=== PATIENT | female | born 1970 | race Caucasian/White ===

== ENCOUNTER 2017-01-28 13:57 | Emergency (ER) | payer MEDICAID ==
[2017-01-28] MEDS ORDERED: MECLIZINE 12.5 MG TAB PO STA (14:10)
[2017-01-28] MEDS ORDERED: LORazepam 2 MG/ML SYRINGE IV STA (14:10)
[2017-01-28] MEDS ORDERED: ONDANSETRON 4 MG/2 ML VIAL IVP STA (14:10)
[2017-01-28] MEDS ORDERED: RX INFO: IV CONTRAST WAS GIVEN 1 EACH MISC MISCELLANE PRN (14:10)
[2017-01-28] MEDS ORDERED: SODIUM CHLORIDE 0.9% 1,000 ML IV STA ×2 (14:10)
--- NOTE | 2017-01-28 14:13 | ED ---
General Adult HPI - General Chief complaint: Dizziness Stated complaint: Nausea/ Rapid Heartbeat Time Seen by Provider: 01/28/17 14:03 Source: patient, family, RN notes reviewed Mode of arrival: wheelchair Limitations: no limitations - History of Present Illness Initial comments: 46-year-old female presents with sudden onset dizziness and nausea. Patient was at work and around 12 PM developed the symptoms. Patient was well prior to this. No complaints. Patient does report a spinning sensation. Worse with her eyes open. She feels somewhat better laying down with her eyes closed. Symptoms are worse with sitting or standing. No ear pain or hearing changes. Denies recent cough or cold symptoms. No fever or chills. No chest pain shortness of breath. No complaints of weakness. Patient does have past medical history of brain aneurysm. She had previously followed with neurosurgery and at the time of her most recent evaluation which was approximately 5 years ago there was no need for intervention. Patient states she should have this monitored on an annual basis but has not had CT angiography or angiography in the past 5 years. she currently denies headache. Denies focal weakness. - Related Data Home Medications Medication Instructions Recorded Confirmed Cetirizine HCl [Zyrtec] 10 mg PO DAILY PRN 01/28/17 01/28/17 diphenhydrAMINE [Benadryl] 50 mg PO HS 01/28/17 01/28/17 Allergies Allergy/AdvReac Type Severity Reaction Status Date / Time Penicillins Allergy Unknown Verified 01/28/17 14:39 Review of Systems ROS Statement: Those systems with pertinent positive or pertinent negative responses have been documented in the HPI. ROS Other: All systems not noted in ROS Statement are negative. Past Medical History Additional Past Medical History / Comment(s): brain aneurysm History of Any Multi-Drug Resistant Organisms: None Reported Past Surgical History: Cholecystectomy Additional Past Surgical History / Comment(s): breast reduction Past Psychological History: No Psychological Hx Reported Smoking Status: Never smoker Past Alcohol Use History: None Reported Past Drug Use History: None Reported General Exam Limitations: no limitations General appearance: alert, in distress Head exam: Present: atraumatic, normocephalic Eye exam: Present: normal appearance, PERRL, EOMI ENT exam: Present: normal exam, mucous membranes moist Neck exam: Present: normal inspection. Absent: tenderness, meningismus Respiratory exam: Present: normal lung sounds bilaterally. Absent: respiratory distress, wheezes, rales Cardiovascular Exam: Present: regular rate, normal rhythm GI/Abdominal exam: Present: soft. Absent: distended, tenderness Extremities exam: Present: normal inspection, full ROM, normal capillary refill. Absent: tenderness, pedal edema Neurological exam: Present: alert, oriented X3, CN II-XII intact, other (No nystagmus). Absent: motor sensory deficit Psychiatric exam: Present: normal affect, normal mood Skin exam: Present: warm, dry, intact. Absent: cyanosis, diaphoretic Course Vital Signs 01/28/17 01/28/17 14:00 14:48 Temperature 97.0 F L Pulse Rate 87 81 Respiratory 20 18 Rate Blood Pressure 120/59 103/51 O2 Sat by Pulse 100 100 Oximetry EKG Findings - EKG Comments: EKG Findings:: EKG shows normal sinus rhythm, ventricular rate 75, WI interval 144, QRS duration 78, QTC 453, no ST segment elevation or depression, no signs of ischemia Medical Decision Making - Medical Decision Making 46-year-old female with sudden onset dizziness and nausea. Signs and symptoms are consistent with vertigo. However, patient has known history of brain aneurysm. His been over 5 years since she has had this evaluated. Head CT is obtained, negative for intracranial hemorrhage. CT angiography that neck is obtained, there is no aneurysm, there is one large enhancing likely arterial vessel in the right frontal region. This is not an aneurysm. This was discussed with radiology and Dr. Yap, does not believe this is an AVM. Laboratory studies including CBC, CMP and urinalysis are obtained, these are unremarkable. Patient is given meclizine, Zofran, and Ativan. On reevaluation she is symptom free while at rest, lying down. Nausea resolved. Patient will be discharged with close outpatient follow-up. Diagnosis: Vertigo - Lab Data Result diagrams: 01/28/17 14:44 01/28/17 14:44 Lab Results 01/28/17 01/28/17 01/28/17 Range/Units 13:26 14:44 14:44 WBC 9.5 (3.8-10.6) k/uL RBC 4.88 (3.80-5.40) m/uL Hgb 14.8 (11.4-16.0) gm/dL Hct 44.2 (34.0-46.0) % MCV 90.6 (80.0-100.0) fL MCH 30.3 (25.0-35.0) pg MCHC 33.5 (31.0-37.0) g/dL RDW 13.6 (11.5-15.5) % Plt Count 260 (150-450) k/uL Neutrophils % 86 % Lymphocytes % 10 % Monocytes % 2 % Eosinophils % 0 % Basophils % 0 % Neutrophils # 8.2 H (1.3-7.7) k/uL Lymphocytes # 1.0 (1.0-4.8) k/uL Monocytes # 0.2 (0-1.0) k/uL Eosinophils # 0.0 (0-0.7) k/uL Basophils # 0.0 (0-0.2) k/uL Sodium 138 (137-145) mmol/L Potassium 4.7 (3.5-5.1) mmol/L Chloride 102 (98-107) mmol/L Carbon Dioxide 24 (22-30) mmol/L Anion Gap 12 mmol/L BUN 7 (7-17) mg/dL Creatinine 0.73 (0.52-1.04) mg/dL Est GFR (MDRD) Af Amer >60 (>60 ml/min/1.73 sqM) Est GFR (MDRD) Non-Af >60 (>60 ml/min/1.73 sqM) Glucose 102 H (74-99) mg/dL Calcium 9.7 (8.4-10.2) mg/dL Total Bilirubin 0.3 (0.2-1.3) mg/dL AST 21 (14-36) U/L ALT 30 (9-52) U/L Alkaline Phosphatase 72 (38-126) U/L Troponin I (0.000-0.034) ng/mL Total Protein 7.7 (6.3-8.2) g/dL Albumin 4.5 (3.5-5.0) g/dL Urine Color Light Yellow Urine Appearance Clear (Clear) Urine pH 6.5 (5.0-8.0) Ur Specific [place] 1.005 (1.001-1.035) Urine Protein Negative (Negative) Urine Glucose (UA) Negative (Negative) Urine Ketones Negative (Negative) Urine Blood Negative (Negative) Urine Nitrite Negative (Negative) Urine Bilirubin Negative (Negative) Urine Urobilinogen <2.0 (<2.0) mg/dL Ur Leukocyte Esterase Negative (Negative) 01/28/17 Range/Units 14:44 WBC (3.8-10.6) k/uL RBC (3.80-5.40) m/uL Hgb (11.4-16.0) gm/dL Hct (34.0-46.0) % MCV (80.0-100.0) fL MCH (25.0-35.0) pg MCHC (31.0-37.0) g/dL RDW (11.5-15.5) % Plt Count (150-450) k/uL Neutrophils % % Lymphocytes % % Monocytes % % Eosinophils % % Basophils % % Neutrophils # (1.3-7.7) k/uL Lymphocytes # (1.0-4.8) k/uL Monocytes # (0-1.0) k/uL Eosinophils # (0-0.7) k/uL Basophils # (0-0.2) k/uL Sodium (137-145) mmol/L Potassium (3.5-5.1) mmol/L Chloride (98-107) mmol/L Carbon Dioxide (22-30) mmol/L Anion Gap mmol/L BUN (7-17) mg/dL Creatinine (0.52-1.04) mg/dL Est GFR (MDRD) Af Amer (>60 ml/min/1.73 sqM) Est GFR (MDRD) Non-Af (>60 ml/min/1.73 sqM) Glucose (74-99) mg/dL Calcium (8.4-10.2) mg/dL Total Bilirubin (0.2-1.3) mg/dL AST (14-36) U/L ALT (9-52) U/L Alkaline Phosphatase (38-126) U/L Troponin I <0.012 (0.000-0.034) ng/mL Total Protein (6.3-8.2) g/dL Albumin (3.5-5.0) g/dL Urine Color Urine Appearance (Clear) Urine pH (5.0-8.0) Ur Specific [place] (1.001-1.035) Urine Protein (Negative) Urine Glucose (UA) (Negative) Urine Ketones (Negative) Urine Blood (Negative) Urine Nitrite (Negative) Urine Bilirubin (Negative) Urine Urobilinogen (<2.0) mg/dL Ur Leukocyte Esterase (Negative) Disposition Clinical Impression: Vertigo Disposition: HOME SELF-CARE Condition: Good Instructions: Vertigo (ED) Referrals: Katharine Andrade DO [Primary Care Provider] - 1-2 days Time of Disposition: 16:06
[2017-01-28 14:49] VITALS: RESP 18
[2017-01-28 14:57] LABS: Basophils % (A) 0 %; CH 31.5; CHCM 34.9; Eosinophils % (A) 0 %; HCT 44.2 % (34.0-46.0); HDW 2.53; HGB 14.8 gm/dL (11.4-16.0); Luc # (Auto) 0.07; Luc % (Auto) 1; Lymphocytes % (A) 10 %; MCH 30.3 pg (25.0-35.0); MCHC 33.5 g/dL (31.0-37.0); MCV 90.6 fL (80.0-100.0); Mean Platelet Volume 7.2; Monocytes # (A) 0.2 k/uL (0-1.0); Monocytes % (A) 2 %; Neutrophils # (A) 8.2 k/uL (1.3-7.7); Neutrophils % (A) 86 %; RBC 4.88 m/uL (3.80-5.40); RDW 13.6 % (11.5-15.5); WBC 9.5 k/uL (3.8-10.6); WBC (Perox) 9.58
[2017-01-28 15:09] LABS: ALT 30 U/L (9-52); AST 21 U/L (14-36); Alkaline Phosphatase 72 U/L (38-126); Anion Gap 12 mmol/L; Blood Urea Nitrogen 7 mg/dL (7-17); Calcium 9.7 mg/dL (8.4-10.2); Carbon Dioxide 24 mmol/L (22-30); Chloride 102 mmol/L (98-107); Glucose 102 mg/dL (74-99); Non-African American GFR(MDRD) >60 (>60 ml/min/1.73 sqM); Potassium 4.7 mmol/L (3.5-5.1); Sodium 138 mmol/L (137-145); Total Bilirubin 0.3 mg/dL (0.2-1.3); Total Protein 7.7 g/dL (6.3-8.2)
[2017-01-28 15:35] LABS: Appearance,Urine Clear (Clear); Bilirubin,Urine Negative (Negative); Glucose,Urine (UA) Negative (Negative); Ketones,Urine Negative (Negative); Leukocyte Esterase,Urine Negative (Negative); Nitrite,Urine Negative (Negative); PH, Urine 6.5 (5.0-8.0); Protein,Urine Negative (Negative); Specific Gravity,Urine 1.005 (1.001-1.035); UA Billing (MACRO vs. MICRO) CHEM; Urobilinogen,Urine <2.0 mg/dL (<2.0)
--- NOTE | 2017-01-28 15:41 | CT ---
EXAMINATION TYPE: CT angio head neck DATE OF EXAM: 01/28/2017 HISTORY: Dizziness and nausea. hx of brain aneurysm. COMPARISON: NONE CT DLP: 248.1 mGycm. Automated Exposure Control for Dose Reduction was Utilized. TECHNIQUE: CTA scan of the neck is performed with IV Contrast, patient injected with 65 mL of Omnipa que 300, axial images are obtained, coronal and sagittal reformatted images are reviewed. Three-D rec onstructed images are created on an independent workstation and reviewed. FINDINGS: Large right arterial enhancing vessel extends from the anterior horn of the right lateral ventricle t hrough the right frontal lobe to the dural surface. No nidus is seen. No tangle of vessels to suggest arteriovenous malformation although arterial venous malformation is not excluded. Developmental veno us anomaly is also possible. This is most prominent on series 6 image 29. No evidence of hemodynamically significant stenosis. Origins of the great vessels are unremarkable. N o evidence of dissection or aneurysm. Left posterior communicating artery is either absent or diminut gurjit. Remainder the visualized portions of the [place] are intact and unremarkable. Vertebral arteries are codominant. IMPRESSION: 1. No evidence of hemodynamically significant stenosis or aneurysm despite this patient's known histo ry of aneurysm. Comparison with prior imaging would be of benefit. 2. Large arterial enhancing right frontal vessel without tangle of vessels to suggest underlying violet riovenous malformation. Despite this, arterial venous malformation is possible with other differentia l diagnosis of developmental venous anomaly.
--- NOTE | 2017-01-28 15:44 | CT ---
EXAMINATION TYPE: CT brain wo con DATE OF EXAM: 01/28/2017 COMPARISON: CT angiogram head and neck dated 01/20/2017. HISTORY: Dizziness and nausea. hx of brain aneurysm. CT DLP: 945.5 mGycm. Automated Exposure Control for Dose Reduction was Utilized. TECHNIQUE: CT scan of the head is performed without contrast. FINDINGS: There is no acute intracranial hemorrhage, mass effect, or midline shift identified. The ventricles and sulci are within normal limits in size. No extra-axial fluid collection. The globes are intact and the visualized sinuses are clear. Mastoid air cells are well aerated. Serpiginous area of hypoattenuation relates to the arterial enhancing vessel seen on the prior CT angiogram head and neck of the same date. IMPRESSION: 1. No acute intracranial hemorrhage, mass effect, or midline shift is seen. 2. Serpiginous area of hypoattenuation relates to the arterial enhancing vessel seen on the CT angiog mana head dated 01/28/2017.
[2017-01-28 16:13] VITALS: BP 101/74; PULSE 74; TEMP 98.4
== END 2017-01-28 16:33 | disposition home or self-care (01) ==
LOC: EC 13:57
DX: R42 Dizziness and giddiness (principal); R11.0 Nausea; Z86.69 Personal history of other diseases of the nervous system and sense organs; Z79.899 Other long term (current) drug therapy; Z88.0 Allergy status to penicillin
CPT/HCPCS: 36415; 93005; 80053; 84484; 85025; 81003; 70496; 70450; 70498; 99284; 96374; 96375; 96361 ×2; J2060; Q9967; J2405

== ENCOUNTER 2019-05-30 10:19 | Inpatient (IN) | payer MEDICAID ==
--- NOTE | 2019-05-30 11:09 | ED ---
Psych HPI - General Chief Complaint: Psychiatric Symptoms Stated Complaint: EPS eval Time Seen by Provider: 05/30/19 10:48 Source: patient, RN notes reviewed, old records reviewed Mode of arrival: ambulatory - History of Present Illness Initial Comments: This Patient is a 49-year-old female, who presents the emergency department today for concern for suicidal ideations. She reports that she has a history of seasonal depression disorder but does not see a psychiatrist or talks to any counseling services at this time. Patient states that she's been having increased suicidal thoughts. She reports that she has had some suicidal thoughts and depression, and did think about attempting suicide over the weekend. 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 She reports that they were in a hotel when she thought about cutting herself. Patient reports that she could not bear the thought of her seeing her about ways that she ended up not going through with it. She states that she did give herself an appointment with her primary care doctor for this upcoming week but just didn't know if she could make it until that long to see them. Patient states that she has a "good life" with a stable job, wonderful and family. Patient states that she does have a family history of manic depressive disorder. - Related Data Home Medications Medication Instructions Recorded Confirmed Cetirizine HCl [Zyrtec] 10 mg PO DAILY PRN 01/28/17 05/30/19 diphenhydrAMINE [Benadryl] 50 mg PO HS 01/28/17 05/30/19 Allergies Allergy/AdvReac Type Severity Reaction Status Date / Time Penicillins Allergy Unknown Verified 05/30/19 11:29 Review of Systems ROS Statement: Those systems with pertinent positive or pertinent negative responses have been documented in the HPI. ROS Other: All systems not noted in ROS Statement are negative. Past Medical History Additional Past Medical History / Comment(s): brain aneurysm History of Any Multi-Drug Resistant Organisms: None Reported Past Surgical History: Cholecystectomy Additional Past Surgical History / Comment(s): breast reduction Past Psychological History: No Psychological Hx Reported Smoking Status: Never smoker Past Alcohol Use History: None Reported Past Drug Use History: None Reported General Exam - General Exam Comments Initial Comments: 49-year-old female. Tearful. Limitations: no limitations General appearance: alert, in no apparent distress Head exam: Present: atraumatic, normocephalic, normal inspection Eye exam: Present: normal appearance, PERRL, EOMI. Absent: scleral icterus, conjunctival injection, periorbital swelling ENT exam: Present: normal exam, mucous membranes moist Neck exam: Present: normal inspection. Absent: tenderness, meningismus, lymphadenopathy Respiratory exam: Present: normal lung sounds bilaterally. Absent: respiratory distress, wheezes, rales, rhonchi, stridor Cardiovascular Exam: Present: regular rate, normal rhythm, normal heart sounds. Absent: systolic murmur, diastolic murmur, rubs, gallop, clicks GI/Abdominal exam: Present: soft, normal bowel sounds. Absent: distended, tenderness, guarding, rebound, rigid Extremities exam: Present: normal inspection, full ROM, normal capillary refill. Absent: tenderness, pedal edema, joint swelling, calf tenderness Back exam: Present: normal inspection Neurological exam: Present: alert, oriented X3, CN II-XII intact Psychiatric exam: Present: normal affect, normal mood Skin exam: Present: warm, dry, intact, normal color. Absent: rash Course Vital Signs 05/30/19 05/30/19 05/30/19 10:42 10:45 11:45 Temperature 98.0 F Pulse Rate 95 Respiratory 18 20 20 Rate Blood Pressure 154/77 O2 Sat by Pulse 98 Oximetry Medical Decision Making - Medical Decision Making This is a 49-year-old female who presents emergency Department today for concern for suicidal ideations. Patient has no previous inpatient psych history. Does have a family history of manic depression. She states that she had almost attempted to cut herself with a scalpel that she took from work. Patient was evaluated by EPS and does agree to sign in voluntarily. Patient will be admitted to psychiatric floor. Does request some Tylenol for headache at this time. - Lab Data Lab Results 05/30/19 Range/Units 11:22 Urine Opiates Screen Not Detected (NotDetected) Ur Oxycodone Screen Not Detected (NotDetected) Urine Methadone Screen Not Detected (NotDetected) Ur Propoxyphene Screen Not Detected (NotDetected) Ur Barbiturates Screen Not Detected (NotDetected) U Tricyclic Antidepress Not Detected (NotDetected) Ur Phencyclidine Scrn Not Detected (NotDetected) Ur Amphetamines Screen Not Detected (NotDetected) U Methamphetamines Scrn Not Detected (NotDetected) U Benzodiazepines Scrn Not Detected (NotDetected) Urine Cocaine Screen Not Detected (NotDetected) U Marijuana (THC) Screen Not Detected (NotDetected) Disposition Clinical Impression: Suicidal ideation, Depression Disposition: TRANSFER TO PSYCH HOSP/UNIT Condition: Stable Additional Instructions: Please use medication as discussed. Please follow up with family doctor if symptoms have not improved over the next two days. Please return to the emergency room if your symptoms increase or worsen or for any other concerns. Is patient prescribed a controlled substance at d/c from ED?: No Referrals: Katharine Andrade DO [Primary Care Provider] - 1-2 days Time of Disposition: 13:20
[2019-05-30 11:57] LABS: Amphetamine Screen,Urine Not Detected (NotDetected); Barbiturate Screen,Urine Not Detected (NotDetected); Benzodiazepines Screen,Urine Not Detected (NotDetected); Cocaine Screen,Urine Not Detected (NotDetected); Methadone Screen, Urine Not Detected (NotDetected); Opiate Screen,Urine Not Detected (NotDetected); Oxycodone Screen, Urine Not Detected (NotDetected); Phencyclidine Screen,Urine Not Detected (NotDetected); Tricyclic Antidepressant,Urine Not Detected (NotDetected); Urn Cannabinoid Scrn Not Detected (NotDetected)
[2019-05-30] MEDS ORDERED: ACETAMINOPHEN TAB 500 MG TAB PO STA (13:19)
[2019-05-30] MEDS ORDERED: MAGNESIUM HYDROXIDE 2,400 MG/10 ML CUP PO PRN (17:24)
[2019-05-30] MEDS ORDERED: MAG HYDROX/AL HYDROX/SIMETH 30 ML CUP PO PRN (17:24)
[2019-05-30] MEDS ORDERED: LORazepam 0.5 MG TAB PO PRN (17:24)
[2019-05-30] MEDS ORDERED: LORazepam 2 MG/ML INJ IM PRN (17:27)
[2019-05-30] MEDS: ACETAMINOPHEN TAB 325 MG TAB PO PRN (21:17)
[2019-05-31] MEDS: IBUPROFEN 800 MG TAB PO PRN ×2 (05:00→20:20)
[2019-05-31 11:34] LABS: Basophils % (A) 1 %; Eosinophils # (A) 0.1 k/uL (0-0.7); Eosinophils % (A) 1 %; HCT 43.8 % (34.0-46.0); Lymphocytes # (A) 1.7 k/uL (1.0-4.8); Lymphocytes % (A) 27 %; MCHC 32.1 g/dL (31.0-37.0); MCV 90.6 fL (80.0-100.0); Mean Platelet Volume 7.4; Monocytes # (A) 0.3 k/uL (0-1.0); Monocytes % (A) 5 %; Neutrophils # (A) 3.9 k/uL (1.3-7.7); Neutrophils % (A) 64 %; Platelet Count 291 k/uL (150-450); RBC 4.84 m/uL (3.80-5.40); RDW 12.2 % (11.5-15.5); WBC 6.1 k/uL (3.8-10.6)
[2019-05-31 11:36] LABS: ALT 14 U/L (4-34); AST 24 U/L (14-36); African American GFR (CKD) >90 (>60 ml/min/1.73 sqM); Albumin 3.8 g/dL (3.5-5.0); Alkaline Phosphatase 53 U/L (38-126); Anion Gap 5 mmol/L; Blood Urea Nitrogen 10 mg/dL (7-17); Calcium 9.3 mg/dL (8.4-10.2); Carbon Dioxide 30 mmol/L (22-30); Chloride 104 mmol/L (98-107); Cholesterol 199 mg/dL (<200); HDL Cholesterol 58 mg/dL (40-60); LDL Cholesterol,Calculated 124 mg/dL (0-99); Non-African American GFR(CKD) 86 (>60 ml/min/1.73 sqM); Sodium 139 mmol/L (137-145); Total Bilirubin 0.5 mg/dL (0.2-1.3); Total Protein 6.4 g/dL (6.3-8.2); Triglycerides 86 mg/dL (<150)
[2019-05-31 11:40] LABS: Glucose 83 mg/dL (74-99); Potassium 4.3 mmol/L (3.5-5.1)
--- NOTE | 2019-05-31 12:33 | P.HP ---
Psychiatric H&P - . H&P Date: 05/31/19 History & Physical: Allergies Allergy/AdvReac Type Severity Reaction Status Date / Time cephalexin From Keflex Allergy Unknown Verified 05/30/19 17:40 Penicillins Allergy Unknown Verified 05/30/19 11:29 sulfamethoxazole Allergy Unknown Verified 05/30/19 17:40 From Bactrim tree nut Allergy Unknown Verified 05/30/19 17:40 trimethoprim From Bactrim Allergy Unknown Verified 05/30/19 17:40 Vital Signs Temp 97.9 F 05/31/19 05:00 Pulse 68 05/31/19 05:00 Resp 16 05/31/19 05:00 BP 104/70 05/31/19 05:00 Pulse Ox 97 05/31/19 05:00 Intake & Output 05/30/19 05/31/19 05/31/19 18:59 06:59 18:59 Weight 65.136 kg Laboratory Last Values WBC 6.1 k/uL (3.8-10.6) 05/31/19 09:30 RBC 4.84 m/uL (3.80-5.40) 05/31/19 09:30 Hgb 14.0 gm/dL (11.4-16.0) 05/31/19 09:30 Hct 43.8 % (34.0-46.0) 05/31/19 09:30 MCV 90.6 fL (80.0-100.0) 05/31/19 09:30 MCH 29.0 pg (25.0-35.0) 05/31/19 09:30 MCHC 32.1 g/dL (31.0-37.0) 05/31/19 09:30 RDW 12.2 % (11.5-15.5) 05/31/19 09:30 Plt Count 291 k/uL (150-450) 05/31/19 09:30 Neutrophils % 64 % 05/31/19 09:30 Lymphocytes % 27 % 05/31/19 09:30 Monocytes % 5 % 05/31/19 09:30 Eosinophils % 1 % 05/31/19 09:30 Basophils % 1 % 05/31/19 09:30 Neutrophils # 3.9 k/uL (1.3-7.7) 05/31/19 09:30 Lymphocytes # 1.7 k/uL (1.0-4.8) 05/31/19 09:30 Monocytes # 0.3 k/uL (0-1.0) 05/31/19 09:30 Eosinophils # 0.1 k/uL (0-0.7) 05/31/19 09:30 Basophils # 0.0 k/uL (0-0.2) 05/31/19 09:30 Sodium 139 mmol/L (137-145) 05/31/19 09:30 Potassium 4.3 mmol/L (3.5-5.1) 05/31/19 09:30 Chloride 104 mmol/L (98-107) 05/31/19 09:30 Carbon Dioxide 30 mmol/L (22-30) 05/31/19 09:30 Anion Gap 5 mmol/L 05/31/19 09:30 BUN 10 mg/dL (7-17) 05/31/19 09:30 Creatinine 0.82 mg/dL (0.52-1.04) 05/31/19 09:30 Est GFR (CKD-EPI)AfAm >90 (>60 ml/min/1.73 sqM) 05/31/19 09:30 Est GFR (CKD-EPI)NonAf 86 (>60 ml/min/1.73 sqM) 05/31/19 09:30 Glucose 83 mg/dL (74-99) 05/31/19 09:30 Calcium 9.3 mg/dL (8.4-10.2) 05/31/19 09:30 Total Bilirubin 0.5 mg/dL (0.2-1.3) 05/31/19:30 AST 24 U/L (14-36) 05/31/19 09:30 ALT 14 U/L (4-34) 05/31/19 09:30 Alkaline Phosphatase 53 U/L (38-126) 05/31/19 09:30 Total Protein 6.4 g/dL (6.3-8.2) 05/31/19 09:30 Albumin 3.8 g/dL (3.5-5.0) 05/31/19 09:30 Triglycerides 86 mg/dL (<150) 05/31/19 09:30 Cholesterol 199 mg/dL (<200) 05/31/19 09:30 LDL Cholesterol, Calc 124 mg/dL (0-99) H 05/31/19 09:30 HDL Cholesterol 58 mg/dL (40-60) 05/31/19 09:30 TSH 1.320 mIU/L (0.465-4.680) 05/31/19 09:30 Urine Opiates Screen Not Detected (NotDetected) 05/30/19 11:22 Ur Oxycodone Screen Not Detected (NotDetected) 05/30/19 11:22 Urine Methadone Screen Not Detected (NotDetected) 05/30/19 11:22 Ur Propoxyphene Screen Not Detected (NotDetected) 05/30/19 11:22 Ur Barbiturates Screen Not Detected (NotDetected) 05/30/19 11:22 U Tricyclic Antidepress Not Detected (NotDetected) 05/30/19 11:22 Ur Phencyclidine Scrn Not Detected (NotDetected) 05/30/19 11:22 Ur Amphetamines Screen Not Detected (NotDetected) 05/30/19 11:22 U Methamphetamines Scrn Not Detected (NotDetected) 05/30/19 11:22 U Benzodiazepines Scrn Not Detected (NotDetected) 05/30/19 11:22 Urine Cocaine Screen Not Detected (NotDetected) 05/30/19 11:22 U Marijuana (THC) Screen Not Detected (NotDetected) 05/30/19 11:22 05/31/19 12:26 IDENTIFYING DATA: Patient is a 49-year-old female who currently lives with her and 2 daughters has one son currently works as a medical assistant internal medicine. HPI: Patient presented to the hospital yesterday with a complaint of depression and suicidal ideations. Patient allegedly was thinking about suicide for weeks and has fleeting thoughts and had a scalpel with her and planned to cut herself in a motel room while she was away on vacation with her . She stated that she didn't want to put her family through a suicide and that's what triggered her to come into the hospital and see her primary care doctor first. She states that she has "seasonal depression" and claims that she has never been on psychotropic medications in the past or seen a psychiatrist. She states that the seasonal depression usually lasts from March until approximately and then wears off however she states that this year it has not been like that. She states that she has been dealing this for approximately 25 years. She claims that she has a "great life" and states that she has a supportive family however does not give any stressors in her life. She states that it is a "chemical imbalance". Patient claims that she has poor sleep approximately 3-4 hours has fair concentration and appetite and mild anxiety. Patient denies any suicidal or homicidal ideations intent or plan. At this time patient denies any auditory or visual hallucinations. Patient denies any flight of ideas racing thoughts and increased in goal directed behavior. Patient denies using any recreational substances and denies using any cigarettes or alcohol. PAST PSYCHIATRIC HISTORY: Patient states that she has never seen a psychiatrist in the past or therapist and denies any inpatient psychiatric admissions in the past. She denies any suicide attempts in the past. She denies being on psychotropic medications. PMH: Brain aneurysm ALLERGIES: as per EMR CHEMICAL DEPENDENCY HISTORY: as per HPI FAMILY PSYCHIATRIC/SUBSTANCE USE HISTORY: She states that her mother and father were polysubstance abusers and suffered from depression. SOCIAL HISTORY: She claims that she was born and raised in [facility] and moved to [place]. Patient claims that she graduated high school and attended school for medical assistant internal medicine. 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 She has 1 son and 2 daughters and currently lives with her . MENTAL STATUS EXAM: General Appearance: Patient appears to be stated age is alert, directable, and attempts to cooperate. Patient is fair hygiene and grooming. Behavior: Patient is calmly seated without any agitated behavior. Patient appears to be depressed and tearful. Speech: Patient's speech is fluent and nonpressured. Mood/Affect: Patient reports their mood is depressed, affect is congruent and tearful. Suicidality/Homicidality: Patient denies having any suicidal or homicidal ideation intent or plan. Perceptions: Patient denies any auditory or visual hallucinations. Though content/process: There is no evidence of any delusional thought content and thought process is linear and goal-directed. Minimizing her symptoms. Memory and concentration: AOX3, grossly intact for the purposes of this session. Can spell "WORLD" backwards Judgment and insight: limited STRENGTHS/WEAKNESSES: strength is that patient is resilient and has good social support, weakness is that patient has limited insight. INTELLECT: average IMPRESSIONS: Major depressive disorder, moderate-severe without psychotic features PLAN: -Patient is admitted under voluntary status to [facility] for stabilization of psychiatric symptoms and safety. Patient signed adult voluntary form and medication consent and is placed in patient's chart. -Medications : Will start patient on Zoloft 50 mg daily for mood/anxiety. We'll also start patient on melatonin 3 mg daily at bedtime for sleep. Patient is on Benadryl 25 mg daily at bedtime for sleep/ALLERGIES, will resume this dose. -Ativan PRN for agitation/aggression -Patient was informed of the risks, benefits and side effects of the medication and patient verbally consented to taking the medications. Patient signed med consent form and was placed in chart. -NRT -not needed as patient does not smoke. -SW on board for discharge planning
[2019-05-31] MEDS: SERTRALINE 50 MG TAB PO SCH (13:30)
--- NOTE | 2019-05-31 14:17 | P.CONS ---
History of Present Illness - Reason for Consult Medical clearance - History of Present Illness His is a 49-year-old very pleasant woman was admitted for severe depression and suicidal ideation. Patient denied any fever chills nausea vomiting abdominal pain Review of Systems REVIEW OF SYSTEMS: CONSTITUTIONAL: No fever, no malaise, no fatigue. HEENT: No recent visual problems or hearing problems. Denied any sore throat. CARDIOVASCULAR: No chest pain, orthopnea, PND, no palpitations, no syncope. PULMONARY: No shortness of breath, no cough, no hemoptysis. GASTROINTESTINAL: No diarrhea, no nausea, no vomiting, no abdominal pain. NEUROLOGICAL: No headaches, no weakness, no numbness. HEMATOLOGICAL: Denies any bleeding or petechiae. GENITOURINARY: Denies any burning micturition, frequency, or urgency. MUSCULOSKELETAL/RHEUMATOLOGICAL: Denies any joint pain, swelling, or any muscle pain. ENDOCRINE: Denies any polyuria or polydipsia. The rest of the 14-point review of systems is negative. Past Medical History Additional Past Medical History / Comment(s): brain aneurysm History of Any Multi-Drug Resistant Organisms: None Reported Past Surgical History: Cholecystectomy Additional Past Surgical History / Comment(s): breast reduction Past Psychological History: No Psychological Hx Reported Smoking Status: Never smoker Past Alcohol Use History: None Reported Past Drug Use History: None Reported Medications and Allergies Home Medications Medication Instructions Recorded Confirmed Type Cetirizine HCl [Zyrtec] 10 mg PO DAILY PRN 01/28/17 05/30/19 History diphenhydrAMINE [Benadryl] 50 mg PO HS 01/28/17 05/30/19 History Allergies Allergy/AdvReac Type Severity Reaction Status Date / Time cephalexin [From Keflex] Allergy Unknown Verified 05/30/19 17:40 Penicillins Allergy Unknown Verified 05/30/19 11:29 sulfamethoxazole Allergy Unknown Verified 05/30/19 17:40 [From Bactrim] tree nut Allergy Unknown Verified 05/30/19 17:40 trimethoprim [From Bactrim] Allergy Unknown Verified 05/30/19 17:40 Physical Exam Vitals: Vital Signs Temp Pulse Resp BP Pulse Ox 05/31/19 05:00 97.9 F 68 16 104/70 97 05/30/19 21:19 95 115/71 05/30/19 17:27 98.3 F 90 18 142/78 05/30/19 16:51 20 05/30/19 15:00 20 Intake and Output 05/30/19 05/31/19 05/31/19 22:59 06:59 14:59 Other: Weight 65.136 kg PHYSICAL EXAMINATION: GENERAL: The patient is alert and oriented x3, not in any acute distress. Well developed, well nourished. HEENT: Pupils are round and equally reacting to light. EOMI. No scleral icterus. No conjunctival pallor. Normocephalic, atraumatic. No pharyngeal erythema. No thyromegaly. CARDIOVASCULAR: S1 and S2 present. No murmurs, rubs, or gallops. PULMONARY: Chest is clear to auscultation, no wheezing or crackles. ABDOMEN: Soft, nontender, nondistended, normoactive bowel sounds. No palpable or ganomegaly. MUSCULOSKELETAL: No joint swelling or deformity. EXTREMITIES: No cyanosis, clubbing, or pedal edema. NEUROLOGICAL: Gross neurological examination did not reveal any focal deficits. SKIN: No rashes. Results CBC & Chem 7: 05/31/19 09:30 05/31/19 09:30 Labs: Abnormal Lab Results - Last 24 Hours (Table) 05/31/19 Range/Units 09:30 LDL Cholesterol, Calc 124 H (0-99) mg/dL Assessment and Plan Plan: -Major depression and suicidal ideation for which patient is on psychiatric floor management as per primary service -Patient doesn't have any other medical problems or complaints at this time, no more recommendations from medicine perspective
[2019-05-31 18:52] LABS: Hemoglobin A1C 5.4 % (4.0-6.0)
[2019-05-31] MEDS: diphenhydrAMINE 25 MG CAP PO SCH (20:20)
[2019-05-31] MEDS: MELATONIN 3 MG TABLET PO SCH (20:20)
[2019-06-01] MEDS: SERTRALINE 50 MG TAB PO SCH (10:13)
--- NOTE | 2019-06-01 10:54 | P.PN ---
Progress Note - Text Progress Note Date: 06/01/19 Interval History: Patient was seen lying down in her bed and was directable and agreeable to str eaked writing the office. Patient was superficial with the proposal writer today and states that she has no complaints. She states that she has not been going to groups and feels that she does not need to be on the unit. She claims that she misses her family and was tearful. Patient was also being guarded about her mood however was being superficially cooperative. Patient states that she does not do "while in big groups". She states that she spoke with her yesterday and her will be calling social media marketing specialist today. Patient claims that her mood is a "5 out of 10" and claims that the medication is helping her. She states that she did have some diarrhea yesterday and earlier this morning however denies any other symptoms or side effects. At this time patient denies any suicidal or homical ideations, intent or plan. Patient denies any auditory, visual hallucinations and denies any paranoia or delusions. Mental Status Exam: General Appearance: Patient appears to be stated age is alert, directable, and is superficially cooperative. Patient is fair hygiene and grooming. Behavior: Patient is calmly seated without any agitated behavior. Tearful at times and superficially cooperative. Speech: Patient's speech is fluent and nonpressured. Mood/Affect: Patient reports their mood is depressed however improving mildly, affect is congruent and tearful at times. Suicidality/Homicidality: Patient denies having any suicidal or homicidal ideation intent or plan. Perceptions: Patient denies any auditory or visual hallucinations. Though content/process: There is no evidence of any delusional thought content and thought process is linear and goal-directed. Minimizing her symptoms, focused on discharge. Memory and concentration: AOX3, grossly intact for the purposes of this session Judgment and insight: limited, superficially cooperative. Assessment Major depressive disorder, moderate-severe without psychotic features Plan: -Patient continues to meet criteria for inpatient psychiatric admission for symptom stabilization and safety. Patient has signed adult voluntary form and medication consent and was placed in patient's chart. -Medications: Will increase Zoloft to 75 mg daily for mood/anxiety. We'll continue with melatonin 3 mg daily at bedtime for sleep. Continue with Benadryl 25 mg daily at bedtime for sleep/ALLERGIES. -When necessary Ativan for agitation/aggression. -NRT -not needed as patient does not smoke. -SW on board for discharge planning. Social work to speak with patient's about discharge planning and any safety concerns at home. Likely discharge either tomorrow or early next week. Strongly encourage patient to take part in groups to work on coping skills and distress tolerance.
[2019-06-01] MEDS: MELATONIN 3 MG TABLET PO SCH (20:46)
[2019-06-01] MEDS: diphenhydrAMINE 25 MG CAP PO SCH (20:47)
[2019-06-02] MEDS: IBUPROFEN 800 MG TAB PO PRN (08:20)
[2019-06-02] MEDS: SERTRALINE 50 MG TAB PO SCH (10:36)
--- NOTE | 2019-06-02 13:11 | P.PN ---
Progress Note - Text Progress Note Date: 06/02/19 Interval History: Patient was seen sitting on her bed and was directable and agreeable to speak with marketing underwriter in the office. Patient continues to be superficial and guarded with marketing underwriter. Patient was also argumentative this morning and was demanding that she have more "labs and hormones" drawn as she wants to find out what is causing this" referring to her depression. She claims that her mood has been mildly improving however claims that she feels "jittery" and she is trying to manage it. Patient continues to speak negatively of the mental health unit and states that she cannot speak to other patients and claims that she has been going to some groups however reluctantly. Patient states that she did sleep last night however claims that she woke up once. She continues to be focused on discharge. She claims that her wants her to call back home. She denies any other side effects at this time the medications. At this time patient denies any suicidal or homical ideations, intent or plan. Patient denies any auditory, visual hallucinations and denies any paranoia or delusions. Patient continues to have poor insight into her actions which led her to come in to the hospital and states that she signed a AMA form yesterday to leave AGAINST MEDICAL ADVICE. Mental Status Exam: General Appearance: Patient appears to be stated age is alert, argumentative/hostile, and is superficially cooperative. Patient is fair hygiene and grooming. Behavior: Patient is calmly seated without any agitated behavior. Hostile/argumentative with marketing underwriter. Speech: Patient's speech is fluent and nonpressured. Mood/Affect: Patient reports their mood is mildly improving, affect is congruent and superficial. Suicidality/Homicidality: Patient denies having any suicidal or homicidal ideation intent or plan. Perceptions: Patient denies any auditory or visual hallucinations. Though content/process: There is no evidence of any delusional thought content and thought process is linear and goal-directed. Minimizing her symptoms, focused on discharge. Argumentative. Memory and concentration: AOX3, grossly intact for the purposes of this session Judgment and insight: Poor Assessment Major depressive disorder, moderate-severe without psychotic features Plan: -Patient continues to meet criteria for inpatient psychiatric admission for symptom stabilization and safety. Patient has signed adult voluntary form and medication consent and was placed in patient's chart. -Medications: Will continue with Zoloft to 75 mg daily for mood/anxiety. We'll continue with melatonin 3 mg daily at bedtime for sleep. Continue with Benadryl 25 mg daily at bedtime for sleep/ALLERGIES. -When necessary Ativan for agitation/aggression. -NRT - not needed as patient does not smoke. -SW on board for discharge planning. Patient signed AMA on 06/01/19. Wednesday will decide if patient meets criteria to be petitioned for court versus discharged home. Strongly encourage patient to take part in groups to work on coping skills and distress tolerance. Protection Specialist spoke with patient's over the phone Manuel who shared his concerns with her treatment and his questions were answered.
[2019-06-02] MEDS: diphenhydrAMINE 25 MG CAP PO SCH (21:09)
[2019-06-02] MEDS: MELATONIN 3 MG TABLET PO SCH (21:09)
[2019-06-03 07:11] VITALS: RESP 16
[2019-06-03] MEDS: SERTRALINE 50 MG TAB PO SCH (09:05)
--- NOTE | 2019-06-03 17:00 | P.PN ---
Progress Note - Text Progress Note Date: 06/03/19 Subjective: Patient was seen today as a cross coverage for . The patient was evaluated, chart reviewed, case discussed with the treatment team. Patient reported better sleep last night. Appetite was reported as " fair". Patient has been going to groups and other unit activities. The patient is compliant with her medications and denies any adverse reactions. Patient reports feeling stable emotionally and he denies any depression symptoms. She denies feeling hopeless or suicidal, and denies any mood swings, irritability, or anger problem. She denies any homicidal ideation. Patient denies any auditory or visual hallucinations and no delusions could be elicited. The patient denies any manic symptoms including sustained period of time with elevated or irritable mood, impulsive or irrational behavior, inflated self- esteem, or absence need to sleep due to increases goal-directed activities. Objective: Vitals has been reviewed. Mental status examination; Appearance: The patient appears stated age, adequately groomed and dressed, no specific features. Gait/posture: Normal gait, Normal arm swinging: No abnormal movements. Attitude and behavior: engaged, cooperative, eye contact. Motor activity: Normal psychomotor activity Speech: Normal rate, tone. Mood: Anxious Affect: Constricted Thought form: goal-directed, linear, coherent. Thought content: Non-delusional, denies suicidal thoughts, denies homicidal thoughts, denies intentions or plans. Perception: Denies any auditory or visual hallucinations Attention: No impairment. Orientation: Patient patient was fully oriented to time place person and situation. Insight: Patient has fair insight about her psychiatric disorder. Judgment: Patient has fair judgment about her psychiatric treatment. Assessment: Major depressive disorder, moderate-severe without psychosis. Plan: Continue inpatient level of care due to need for further stabilization on medications Precautions: Continue 15 minutes check for safety. Consider medical consultation if any acute medical issues arise. Provide the patient individual, group therapy, substance use disorder counseling to give better insight and learn coping skills. Medications: Jennifer Zoloft 75 mg daily for depression and anxiety symptoms. Continue melatonin to help with insomnia. Discharge patient to OUTPATIENT services upon a stabilization
[2019-06-03] MEDS: MELATONIN 3 MG TABLET PO SCH (20:54)
[2019-06-03] MEDS: diphenhydrAMINE 25 MG CAP PO SCH (20:54)
[2019-06-04] MEDS: IBUPROFEN 800 MG TAB PO PRN (06:21)
[2019-06-04] MEDS: SERTRALINE 50 MG TAB PO SCH (08:20)
[2019-06-04] MEDS: ACETAMINOPHEN TAB 325 MG TAB PO PRN (08:21)
--- NOTE | 2019-06-04 13:22 | P.PN ---
Progress Note - Text Progress Note Date: 06/04/19 Subjective: Patient was seen today as a cross coverage for . The patient was evaluated, chart reviewed, case discussed with the treatment team. Patient reports feeling stable emotionally and he denies depression, or anxiety symptoms. She denies any severe mood swings, irritable mood, or agitation. She denies any psychotic symptoms including hallucinations, paranoid ideation, denied delusions could be elicited. She denies any manic symptoms including a euphoric mood, lack need to sleep due to unusual increase in activities, or irrational uninhibited behavior. Patient has been going to groups and other unit activities. She denies any sleep or appetite problem. The patient is compliant with her medications and denies any adverse reactions. Objective: Vitals has been reviewed. Mental status examination; Appearance: The patient appears stated age, adequately groomed and dressed, no specific features. Gait/posture: Normal gait, Normal arm swinging: No abnormal movements. Attitude and behavior: engaged, cooperative, eye contact. Motor activity: Normal psychomotor activity Speech: Normal rate, tone. Mood: "Fine" Affect: Constricted Thought form: goal-directed, linear, coherent. Thought content: Non-delusional, denies suicidal thoughts, denies homicidal thoughts, denies intentions or plans. Perception: Denies any auditory or visual hallucinations Attention: No impairment. Orientation: Patient patient was fully oriented to time place person and situation. Insight: Patient has fair insight about her psychiatric disorder. Judgment: Patient has fair judgment about her psychiatric treatment. Assessment: Major depressive disorder, moderate-severe without psychosis. Plan: Continue inpatient level of care due to need for further stabilization on medications, and discharge planning. Patient showing signs of psychiatric instability to continue her treatment as an outpatient. Precautions: Continue 15 minutes check for safety. Consider medical consultation if any acute medical issues arise. Provide the patient individual, group therapy, substance use disorder counseling to give better insight and learn coping skills. Medications: Continue Zoloft 75 mg daily for depression and anxiety symptoms. Continue melatonin to help with insomnia. Discharge patient to OUTPATIENT services upon a stabilization
[2019-06-04] MEDS: diphenhydrAMINE 25 MG CAP PO SCH (20:54)
[2019-06-04] MEDS: MELATONIN 3 MG TABLET PO SCH (20:54)
[2019-06-05 06:52] VITALS: BP 99/53; PULSE 67; TEMP 98.1
[2019-06-05] MEDS: SERTRALINE 50 MG TAB PO SCH (08:54)
--- NOTE | 2019-06-05 10:56 | P.DS ---
Providers Date of admission: 05/30/19 16:45 Expected date of discharge: 06/05/19 Attending physician: Chavez Pike MD Consults: 05/30/19 17:24 Consult Physician Routine Consulting Provider: Kolby Rick Consult Reason/Comments: H&P and medical Do you want consulting provider notified?: Yes Primary care physician: Katharine Andrade - Discharge Diagnosis(es) (1) Major depressive disorder without psychotic features Current Visit: Yes Status: Acute Priority: High Hospital Course: Admission HPI: Patient is a 49-year-old female who currently lives with her and 2 daughters has one son currently works as a medical staffing coordinator. Patient presented to the hospital yesterday with a complaint of depression and suicidal ideations. Patient allegedly was thinking about suicide for weeks and has fleeting thoughts and had a scalpel with her and planned to cut herself in a motel room while she was away on vacation with her . She stated that she didn't want to put her family through a suicide and that's what triggered her to come into the hospital and see her primary care doctor first. She states that she has "seasonal depression" and claims that she has never been on psychotropic medications in the past or seen a psychiatrist. She states that the seasonal depression usually lasts from March until approximately and then wears off however she states that this year it has not been like that. She states that she has been dealing this for approximately 25 years. She claims that she has a "great life" and states that she has a supportive family however does not give any stressors in her life. She states that it is a "chemical i mbalance". Patient claims that she has poor sleep approximately 3-4 hours has fair concentration and appetite and mild anxiety. Patient denies any suicidal or homicidal ideations intent or plan. At this time patient denies any auditory or visual hallucinations. Patient denies any flight of ideas racing thoughts and increased in goal directed behavior. Patient denies using any recreational subs tances and denies using any cigarettes or alcohol. Hospital course: Upon admission to the unit patient was initially depressed and guarded. Patient was however directable and agreeable to commence treatment. Patient got along well with other patients on the unit and followed unit protocol. Patient was initially isolative on the unit and needed significant encouragement to participate in groups and in milieu and patient did eventually comply with treatment. Patient was compliant with the medications and did have some initial GI symptoms and abdominal pain initially on the medications however this subsided. Patient was started on Zoloft and titrated up to a dose of 75 mg daily for mood/anxiety. Patient was also started on melatonin and was titrated up to a dose of 6 mg daily at bedtime for sleep. Patient was restarted on her home dose of Benadryl 25 mg daily at bedtime for sleep/ALLERGIES. Patient was hesitant and guarded early on in treatment with regards to her depression and st ressors however became more cooperative with treatment and more open. Patient signed AMA on 06/01/2019 as she felt that she did not need to be in the hospital and demanded discharge at that time. After 72 hours, it was felt by television script writer that patient did not currently meet involuntary criteria and court process was not filed and it was felt that patient could be discharged and continue her outpatient treatment. Patient did attend groups to work on coping skills and distress tolerance. Patient was also seen by medical team for history and physical exam. [] Throughout the course of the hospitalization patient gradually improved with regards to mood, anxiety, suicidal thoughts, sleep and became future oriented with improved insight and judgment. On the day of discharge patient denied any suicidal or homicidal ideations intent or plan denied any auditory or visual hallucinations. Patient endorsed wanting to live for her family and her future. The patient claims that her does have guns in the house as he is a education officer however he has locked them away at this time. Patient denied any paranoia and did not endorse any delusions. Patient was also counseled on the medications and need for regular compliance and was encouraged to follow-up with their outpatient appointment for mental health and also for primary care. [Prior to discharge a family meeting will be arranged by social worker masters to answer any questions and ensure safety upon discharge.] Patient was psycho educated about her medications and also encouraged to enter into long-term psychotherapy as an outpatient, patient agreed and understood. Mental status exam: General Appearance: [Patient appears to be stated age is alert, and directable. Patient is in no acute distress and has fair hygiene and grooming] Behavior: [Patient is calmly seated without any agitated behavior.] Somewhat superficially cooperative. Speech: Patient's speech is fluent and nonpressured. Mood/Affect: Patient reports their mood is "good", affect is congruent Suicidality/Homicidality: Patient denies having any suicidal or homicidal ideation intent or plan. Perceptions: Patient denies any auditory or visual hallucinations. Though content/process: There is no evidence of any delusional thought content and thought process is linear and goal-directed. Continues to be guarded/superficially cooperative with television script writer. Memory and concentration: AOX3, grossly intact for the purposes of this session. Can spell "WORLD" backwards correctly. Judgment and insight: improved, superficially cooperative. Impression: Major depressive disorder, without psychotic features Plan: -Continue with discharge today as patient has improved psychiatrically and is not currently an imminent threat to herself and/or others. Patient signed AMA on 06/01/2019 as she and her felt that she did not need to be in the hospital and demanded discharge at that time. After 72 hours, it was felt by television script writer that patient did not currently meet involuntary criteria and court process was not filed and it was felt that patient could be discharged back home and continue her outpatient treatment. -Continue medications: Zoloft 75 mg daily for mood/anxiety, melatonin will be increased to 6 mg nightly for sleep. Patient to continue Benadryl 25 mg daily at bedtime for sleep/ALLERGIES. -Patient was counseled on the need for medication compliance and appropriate follow-up at mental health and also primary care for medical issues. Patient verbalized understanding and agreed. Patient was encouraged to commence and follow-up with outpatient psychotherapy to work on her stressors and coping skills along with depression. -Social work to [arrange for and conduct family meeting to ensure safety upon discharge and answer any questions/concerns.] nitro worker and television script writer spoke with over the phone about patient's need for close observation and mental health resources in case patient requires this in the future along with insuring that lock away the guns in the house, claimed that he did lock them away. Social work also to arrange for patients follow up appointments with [facility] for psychiatric care along with follow up with primary care provider. -Patient counseled on abstaining from recreational drugs and marijuana and alcohol. Was informed/educated on the adverse effects on their physical and mental health. [Patient verbally agreed and understood]. -Patient was instructed to return to the hospital or seek immediate medical care if their psychiatric or medical symptoms do worsen or reoccur. Allergies Allergy/AdvReac Type Severity Reaction Status Date / Time cephalexin [From Keflex] Allergy Unknown Verified 05/30/19 17:40 Penicillins Allergy Unknown Verified 05/30/19 11:29 sulfamethoxazole Allergy Unknown Verified 05/30/19 17:40 [From Bactrim] tree nut Allergy Unknown Verified 05/30/19 17:40 trimethoprim [From Bactrim] Allergy Unknown Verified 05/30/19 17:40 Laboratory Results WBC 6.1 k/uL (3.8-10.6) 05/31/19 09:30 RBC 4.84 m/uL (3.80-5.40) 05/31/19 09:30 Hgb 14.0 gm/dL (11.4-16.0) 05/31/19 09:30 Hct 43.8 % (34.0-46.0) 05/31/19 09:30 MCV 90.6 fL (80.0-100.0) 05/31/19 09:30 MCH 29.0 pg (25.0-35.0) 05/31/19 09:30 MCHC 32.1 g/dL (31.0-37.0) 05/31/19 09:30 RDW 12.2 % (11.5-15.5) 05/31/19 09:30 Plt Count 291 k/uL (150-450) 05/31/19 09:30 Neutrophils % 64 % 05/31/19 09:30 Lymphocytes % 27 % 05/31/19 09:30 Monocytes % 5 % 05/31/19 09:30 Eosinophils % 1 % 05/31/19 09:30 Basophils % 1 % 05/31/19 09:30 Neutrophils # 3.9 k/uL (1.3-7.7) 05/31/19 09:30 Lymphocytes # 1.7 k/uL (1.0-4.8) 05/31/19 09:30 Monocytes # 0.3 k/uL (0-1.0) 05/31/19 09:30 Eosinophils # 0.1 k/uL (0-0.7) 05/31/19 09:30 Basophils # 0.0 k/uL (0-0.2) 05/31/19 09:30 Sodium 139 mmol/L (137-145) 05/31/19 09:30 Potassium 4.3 mmol/L (3.5-5.1) 05/31/19 09: Chloride 104 mmol/L (98-107) 05/31/19 09: Carbon Dioxide 30 mmol/L (22-30) 05/31/19:30 Anion Gap 5 mmol/L 05/31/19: BUN 10 mg/dL (7-17) 05/31/19 09:30 Creatinine 0.82 mg/dL (0.52-1.04) 05/31/19 09:30 Est GFR (CKD-EPI)AfAm >90 (>60 ml/min/1.73 sqM) 05/31/19: Est GFR (CKD-EPI)NonAf 86 (>60 ml/min/1.73 sqM) 05/31/19 09:30 Glucose 83 mg/dL (74-99) 05/31/19 09: Estimated Ave Glu mg/dL 108 05/31/19 09:30 Hemoglobin A1c 5.4 % (4.0-6.0) 05/31/19 09: Calcium 9.3 mg/dL (8.4-10.2) 05/31/19 09: Total Bilirubin 0.5 mg/dL (0.2-1.3) 05/31/19: AST 24 U/L (14-36) 05/31/19:30 ALT 14 U/L (4-34) 05/31/19:30 Alkaline Phosphatase 53 U/L (38-126) 05/31/19: Total Protein 6.4 g/dL (6.3-8.2) 05/31/19:30 Albumin 3.8 g/dL (3.5-5.0) 05/31/19:30 Triglycerides 86 mg/dL (<150) 05/31/19:30 Cholesterol 199 mg/dL (<200) 05/31/19:30 LDL Cholesterol, Calc 124 mg/dL (0-99) H 05/31/19:30 HDL Cholesterol 58 mg/dL (40-60) 05/31/19 09: TSH 1.320 mIU/L (0.465-4.680) 05/31/19 09:30 Urine Opiates Screen Not Detected (NotDetected) 05/30/19 11:22 Ur Oxycodone Screen Not Detected (NotDetected) 05/30/19 11:22 Urine Methadone Screen Not Detected (NotDetected) 05/30/19 11:22 Ur Propoxyphene Screen Not Detected (NotDetected) 05/30/19 11:22 Ur Barbiturates Screen Not Detected (NotDetected) 05/30/19 11:22 U Tricyclic Antidepress Not Detected (NotDetected) 05/30/19 11:22 Ur Phencyclidine Scrn Not Detected (NotDetected) 05/30/19 11:22 Ur Amphetamines Screen Not Detected (NotDetected) 05/30/19 11:22 U Methamphetamines Scrn Not Detected (NotDetected) 05/30/19 11:22 U Benzodiazepines Scrn Not Detected (NotDetected) 05/30/19 11:22 Urine Cocaine Screen Not Detected (NotDetected) 05/30/19 11:22 U Marijuana (THC) Screen Not Detected (NotDetected) 05/30/19 11:22 Vital Signs Temp 98.1 F 06/05/19 06:32 Pulse 67 06/05/19 06:32 Resp 16 06/05/19 06:32 BP 99/53 06/05/19 06:32 Pulse Ox 98 06/03/19 09:06 Intake & Output 06/04/19 06/05/19 06/05/19 18:59 06:59 18:59 Weight 63.9 kg Patient Condition at Discharge: Stable Plan - Discharge Summary Discharge Rx Participant: No New Discharge Prescriptions: New Melatonin 6 mg PO HS 28 Days tablet Ibuprofen [Motrin] 800 mg PO TID PRN tab PRN Reason: Pain Acetaminophen Tab [Tylenol] 650 mg PO Q4HR PRN tab PRN Reason: Pain/Discomfort Sertraline [Zoloft] 75 mg PO DAILY 28 Days tab Continue diphenhydrAMINE [Benadryl] 50 mg PO HS Discontinued Cetirizine HCl [Zyrtec] 10 mg PO DAILY PRN PRN Reason: Allergy Symptoms Discharge Medication List diphenhydrAMINE [Benadryl] 50 mg PO HS 01/28/17 [History] Acetaminophen Tab [Tylenol] 650 mg PO Q4HR PRN tab 06/05/19 [Rx] Ibuprofen [Motrin] 800 mg PO TID PRN tab 06/05/19 [Rx] Melatonin 6 mg PO HS 28 Days tablet 06/05/19 [Rx] Sertraline [Zoloft] 75 mg PO DAILY 28 Days tab 06/05/19 [Rx] Follow up Appointment(s)/Referral(s): [facility] [Outside] - 06/13/19 3:00 pm (Deena Samaniego) Katharine Andrade DO [Primary Care Provider] - 1-2 days Patient Instructions/Handouts: Depression (DC), Help Prevent Suicide (DC) Activity/Diet/Wound Care/Special Instructions: Please use medication as discussed. Please follow up with family doctor if symptoms have not improved over the next two days. Please return to the emergency room if your symptoms increase or worsen or for any other concerns. Discharge Disposition: HOME SELF-CARE
== END 2019-06-05 12:34 | disposition home or self-care (01) | DRG 885 ==
LOC: EC 10:19 → 3MHU 16:45
PROVIDERS: ADMIT Psychiatry & Neurology Psychiatry; ATTEND Psychiatry & Neurology Psychiatry
DX: F32.2 Major depressive disorder, single episode, severe without psychotic features (principal); R45.851 Suicidal ideations; F41.9 Anxiety disorder, unspecified; Z79.899 Other long term (current) drug therapy; Z81.8 Family history of other mental and behavioral disorders; Z88.1 Allergy status to other antibiotic agents; Z88.0 Allergy status to penicillin; Z88.2 Allergy status to sulfonamides; Z91.018 Allergy to other foods
CPT/HCPCS: 80053; 80061; 80306; 82075; 82652; 83036; 84443; 85025; 99285

== ENCOUNTER 2020-07-28 17:28 | Emergency (ER) | payer MEDICAID ==
[2020-07-28 17:37] VITALS: BP 112/75; RESP 18; TEMP 99.6
[2020-07-28 18:20] LABS: African American GFR (CKD) >90 (>60 ml/min/1.73 sqM); Anion Gap 11 mmol/L; Blood Urea Nitrogen 6 mg/dL (7-17); Calcium 9.5 mg/dL (8.4-10.2); Carbon Dioxide 25 mmol/L (22-30); Chloride 101 mmol/L (98-107); Glucose 99 mg/dL (74-99); Non-African American GFR(CKD) >90 (>60 ml/min/1.73 sqM); Potassium 3.8 mmol/L (3.5-5.1); Sodium 137 mmol/L (137-145)
[2020-07-28] MEDS ORDERED: ACETAMINOPHEN TAB 500 MG TAB PO STA (18:25)
[2020-07-28 18:28] VITALS: PULSE 89
[2020-07-28 18:29] LABS: Basophils % (A) 1 %; Eosinophils % (A) 0 %; HCT 44.6 % (34.0-46.0); Lymphocytes # (A) 0.8 k/uL (1.0-4.8); Lymphocytes % (A) 16 %; MCH 29.9 pg (25.0-35.0); MCHC 33.6 g/dL (31.0-37.0); MCV 88.9 fL (80.0-100.0); Mean Platelet Volume 6.8; Monocytes # (A) 0.6 k/uL (0-1.0); Monocytes % (A) 13 %; Neutrophils # (A) 3.2 k/uL (1.3-7.7); Neutrophils % (A) 69 %; Platelet Count 193 k/uL (150-450); RBC 5.01 m/uL (3.80-5.40); RDW 13.1 % (11.5-15.5); WBC 4.7 k/uL (3.8-10.6)
--- NOTE | 2020-07-28 18:49 | ED ---
General Adult HPI - General Chief complaint: Upper Respiratory Infection Stated complaint: HEART RACING THINK SHE HAS COVID Time Seen by Provider: 07/28/20 18:16 Source: patient Mode of arrival: wheelchair Limitations: no limitations - History of Present Illness Initial comments: Dictation was produced using [employer] dictation software. please excuse any grammatical, word or spelling errors. This patient was cared for during a federal and state declared state of emergency secondary to Covid 19 Chief Complaint: 50-year-old male with no previous history presents to the emergency room for tachycardia has had cold symptoms for 2 days History of Present Illness: Patient is a 50-year-old female she has no significant comorbidities. She presents to the emergency department after being urged by urgent care to come to the ER for further testing. She has been having cold symptoms for the last 2 days. Denies any shortness of breath. She does have some muscle aches, constitutional symptoms and shortness of breath. She does not know how she contracted disease. She went to the urgent care where she was found to be persistently tachycardic. The ROS documented in this emergency department record has been reviewed and confirmed by me. Those systems with pertinent positive or negative responses have been documented in the HPI. All other systems are other negative and/or noncontributory. PHYSICAL EXAM: General Impression: Alert and oriented x3, not in acute distress HEENT: Normocephalic atraumatic, extra-ocular movements intact, pupils equal and reactive to light bilaterally, mucous membranes moist. Cardiovascular: Heart regular rate and rhythm Chest: Able to complete full sentences, no retractions, no tachypnea Abdomen: abdomen soft, non-tender, non-distended, no organomegaly Musculoskeletal: Pulses present and equal in all extremities, no peripheral edema Motor: no focal deficits noted Neurological: CN II-XII grossly intact, no focal motor or sensory deficits noted Skin: Intact with no visualized rashes Psych: Normal affect and mood ED course: 50-year-old female presents with tachycardia. Out of signs upon arrival are within acceptable limits. Her heart rate is 89. She is well- appearing. Her Covid is positive. Metabolic panel and CBC are unremarkable. Patient is not hypoxic. Patient be discharged. EKGs benign. EKG interpretation: Ventricular rate 103, sinus tachycardia,. 132, QRS 70, QTC 424. No UT prolongation, no QTC prolongation, no ST or T-wave changes noted. . Overall, this EKG is unremarkable - Related Data Home Medications Medication Instructions Recorded Confirmed diphenhydrAMINE [Benadryl] 50 mg PO HS 01/28/17 05/30/19 Previous Rx's Medication Instructions Recorded Acetaminophen Tab [Tylenol] 650 mg PO Q4HR PRN tab 06/05/19 Ibuprofen [Motrin] 800 mg PO TID PRN tab 06/05/19 Melatonin 6 mg PO HS 28 Days tablet 06/05/19 Sertraline [Zoloft] 75 mg PO DAILY 28 Days tab 06/05/19 Allergies Allergy/AdvReac Type Severity Reaction Status Date / Time cephalexin [From Keflex] Allergy Unknown Verified 07/28/20 17:37 Penicillins Allergy Unknown Verified 07/28/20 17:37 sulfamethoxazole Allergy Unknown Verified 07/28/20 17:37 [From Bactrim] tree nut Allergy Unknown Verified 07/28/20 17:37 trimethoprim [From Bactrim] Allergy Unknown Verified 07/28/20 17:37 Review of Systems ROS Statement: Those systems with pertinent positive or pertinent negative responses have been documented in the HPI. ROS Other: All systems not noted in ROS Statement are negative. Past Medical History Additional Past Medical History / Comment(s): brain aneurysm History of Any Multi-Drug Resistant Organisms: None Reported Past Surgical History: Cholecystectomy Additional Past Surgical History / Comment(s): breast reduction Past Psychological History: No Psychological Hx Reported Past Alcohol Use History: None Reported Past Drug Use History: None Reported General Exam Limitations: no limitations Course Vital Signs 07/28/20 07/28/20 17:34 18:27 Temperature 99.6 F Pulse Rate 115 H 89 Respiratory 18 18 Rate Blood Pressure 112/75 O2 Sat by Pulse 97 98 Oximetry Medical Decision Making - Lab Data Result diagrams: 07/28/20 17:48 07/28/20 17:48 Lab Results 07/28/20 07/28/20 07/28/20 Range/Units 17:42 17:48 17:48 WBC 4.7 (3.8-10.6) k/uL RBC 5.01 (3.80-5.40) m/uL Hgb 15.0 (11.4-16.0) gm/dL Hct 44.6 (34.0-46.0) % MCV 88.9 (80.0-100.0) fL MCH 29.9 (25.0-35.0) pg MCHC 33.6 (31.0-37.0) g/dL RDW 13.1 (11.5-15.5) % Plt Count 193 (150-450) k/uL MPV 6.8 Neutrophils % 69 % Lymphocytes % 16 % Monocytes % 13 % Eosinophils % 0 % Basophils % 1 % Neutrophils # 3.2 (1.3-7.7) k/uL Lymphocytes # 0.8 L (1.0-4.8) k/uL Monocytes # 0.6 (0-1.0) k/uL Eosinophils # 0.0 (0-0.7) k/uL Basophils # 0.0 (0-0.2) k/uL APTT 23.3 (22.0-30.0) sec Sodium (137-145) mmol/L Potassium (3.5-5.1) mmol/L Chloride (98-107) mmol/L Carbon Dioxide (22-30) mmol/L Anion Gap mmol/L BUN (7-17) mg/dL Creatinine (0.52-1.04) mg/dL Est GFR (CKD-EPI)AfAm (>60 ml/min/1.73 sqM) Est GFR (CKD-EPI)NonAf (>60 ml/min/1.73 sqM) Glucose (74-99) mg/dL Plasma Lactic Acid Bean (0.7-2.0) mmol/L Calcium (8.4-10.2) mg/dL Troponin I (0.000-0.034) ng/mL Coronavirus (PCR) Detected A (Not Detectd) 07/28/20 07/28/20 07/28/20 Range/Units 17:48 17:48 17:48 WBC (3.8-10.6) k/uL RBC (3.80-5.40) m/uL Hgb (11.4-16.0) gm/dL Hct (34.0-46.0) % MCV (80.0-100.0) fL MCH (25.0-35.0) pg MCHC (31.0-37.0) g/dL RDW (11.5-15.5) % Plt Count (150-450) k/uL MPV Neutrophils % % Lymphocytes % % Monocytes % % Eosinophils % % Basophils % % Neutrophils # (1.3-7.7) k/uL Lymphocytes # (1.0-4.8) k/uL Monocytes # (0-1.0) k/uL Eosinophils # (0-0.7) k/uL Basophils # (0-0.2) k/uL APTT (22.0-30.0) sec Sodium 137 (137-145) mmol/L Potassium 3.8 (3.5-5.1) mmol/L Chloride 101 (98-107) mmol/L Carbon Dioxide 25 (22-30) mmol/L Anion Gap 11 mmol/L BUN 6 L (7-17) mg/dL Creatinine 0.66 (0.52-1.04) mg/dL Est GFR (CKD-EPI)AfAm >90 (>60 ml/min/1.73 sqM) Est GFR (CKD-EPI)NonAf >90 (>60 ml/min/1.73 sqM) Glucose 99 (74-99) mg/dL Plasma Lactic Acid Bean 1.7 (0.7-2.0) mmol/L Calcium 9.5 (8.4-10.2) mg/dL Troponin I <0.012 (0.000-0.034) ng/mL Coronavirus (PCR) (Not Detectd) Disposition Clinical Impression: COVID-19 Disposition: HOME SELF-CARE Condition: Good Instructions (If sedation given, give patient instructions): Viral Pneumonia ( DC) Additional Instructions: Today you were evaluated for symptoms consistent with upper respiratory infection. Today you tested positive for Covid 19. Your are stable for discharge, however it is instructed to to seek immediate medical attention especially if you develop worsening symptoms especially respiratory distress. If possible, try to obtain a pulse oximeter and monitor your oxygen at home. In the meantime please remain in quarantine for 14 days. For any other questions please contact Nacho for here in emergency department or [facility] Department at [phone] Is patient prescribed a controlled substance at d/c from ED?: No Referrals: Katharine Andrade DO [Primary Care Provider] - 1-2 days Time of Disposition: 18:48
== END 2020-07-28 19:05 | disposition home or self-care (01) ==
LOC: EC 17:28
DX: U07.1 COVID-19 (principal)
CPT/HCPCS: 36415; 80048; 83605; 84484; 85025; 85730; 87635; 99285

== ENCOUNTER 2022-01-06 08:31 | Day surgery (SDC) | payer MEDICAID ==
[2021-12-31 15:38] VITALS: BMI 24.7
[~2022-01-06 08:31] MED LIST: LACTATED RINGERS 1,000 ML IV SCH; LIDOCAINE 1% (10MG/ML) FOR IV START INTRADERMA PRN
[2022-01-06 09:09] VITALS: TEMP 97
[2022-01-06] MEDS ORDERED: PROPOFOL 10 MG/ML 20 ML VIAL IV ONE (10:29)
--- NOTE | 2022-01-06 10:34 | P.GSHP ---
History of Present Illness H&P Date: 01/06/22 Chief Complaint: GERD 51-year-old female here today for upper endoscopy. Patient with bad reflux ever since she had Covid in the spring. Describes a burning retrosternal discomfort and regurgitation. Symptoms worse at night. She sleeps propped up. She takes Protonix daily with only mild improvement in her symptoms. Past Medical History Past Medical History: GERD/Reflux, Osteoarthritis (OA) Additional Past Medical History / Comment(s): brain aneurysm-DR WATCHING, MIGRAINE HEADACHE, History of Any Multi-Drug Resistant Organisms: None Reported Past Surgical History: Breast Surgery, Cholecystectomy, Uterine Ablation Additional Past Surgical History / Comment(s): BILATERAL Breast reduction, PARTIAL RIGHT OOPHERECTOMY, Past Anesthesia/Blood Transfusion Reactions: Postoperative Nausea & Vomiting (PONV) Additional Past Anesthesia/Blood Transfusion Reaction / Comment(s): POST OP NAUSEA Smoking Status: Never smoker - Past Family History Mother Family Medical History: Cancer Additional Family Medical History / Comment(s): BREAST CANCER Medications and Allergies Home Medications Medication Instructions Recorded Confirmed Type diphenhydrAMINE [Benadryl] 50 mg PO HS 01/28/17 01/06/22 History Acetaminophen Tab [Tylenol] 650 mg PO Q4HR PRN tab 06/05/19 01/06/22 Rx Ibuprofen [Motrin] 800 mg PO TID PRN tab 06/05/19 01/06/22 Rx FLUoxetine HCL [PROzac] 20 mg PO HS 12/31/21 01/06/22 History Pantoprazole [Protonix] 40 mg PO DAILY 12/31/21 01/06/22 History Allergies Allergy/AdvReac Type Severity Reaction Status Date / Time cephalexin [From Keflex] Allergy HIVES Verified 01/06/22 08:59 Penicillins Allergy Unknown Verified 01/06/22 08:59 Childhood sulfamethoxazole Allergy BLOODY Verified 01/06/22 08:59 [From Bactrim] BLACK STOOLS tree nut Allergy Unknown Verified 01/06/22 08:59 trimethoprim [From Bactrim] Allergy BLOODY Verified 01/06/22 08:59 STOOLS Surgical - Exam Vital Signs Temp Pulse Resp BP Pulse Ox 97.0 F L 80 14 120/58 96 01/06/22 09:07 01/06/22 09:07 01/06/22 09:07 01/06/22 09:07 01/06/22 09:07 Physical exam: General: Well-developed, well-nourished HEENT: Normocephalic, sclerae nonicteric Abdomen: Nontender, nondistended Extremities: No edema Neuro: Alert and oriented Assessment and Plan (1) GERD (gastroesophageal reflux disease) Narrative/Plan: Will proceed with upper endoscopy. Current Visit: Yes Status: Acute Code(s): K21.9 - GASTRO-ESOPHAGEAL REFLUX DISEASE WITHOUT ESOPHAGITIS SNOMED Code(s): 765864098
--- NOTE | 2022-01-06 10:44 | P.PCN ---
Date of Procedure: 01/06/22 Procedure(s) Performed: Preoperative Dx: GERD Postoperative Dx: Mild gastritis Procedure: EGD with Bx Anesthesia: Sedation Endoscopist: Dr. Pérez Specimens: Antrum Endoscopic Procedure: The patient was on the endoscopy table in the left decubitus position. The Olympus gastroscope was inserted into the oropharynx and passed under direct visualization to the region of the third portion of the duodenum. From that point the scope was slowly withdrawn inspecting all surfaces carefully. There were no neoplastic inflammatory or polypoid lesions throughout the duodenum. The pylorus was widely patent. The stomach was carefully inspected. There was mild gastritis in the antrum and prepyloric region. A biopsy of the antrum took place to rule out H. pylori. Retroflexion revealed a normal hiatus. The esophagus was then carefully examined. There were no neoplastic inflammatory or polypoid lesions throughout the visualized esophagus. The patient was then taken to the recovery room in stable condition per anesthesia guidelines. Recommendations: Await biopsy results. Continue antiacid therapy.
[2022-01-06 10:55] VITALS: RESP 16
[2022-01-06] MEDS ORDERED: ONDANSETRON 4 MG/2 ML VIAL ONE (10:56)
[2022-01-06] MEDS ORDERED: ONDANSETRON 4 MG/2 ML VIAL IVP ONE (10:58)
[2022-01-06 11:22] VITALS: BP 94/54; PULSE 75
--- NOTE | 2022-01-06 11:51 | P.PCN ---
Date of Procedure: 01/06/22 Procedure(s) Performed: Preoperative Dx: GERD Postoperative Dx: Gastritis, small gastric polyp Procedure: EGD with Bx Anesthesia: Sedation Endoscopist: Dr. Pérez Specimens: Gastritis, polyp Endoscopic Procedure: The patient was on the endoscopy table in the left decubitus position. The Olympus gastroscope was inserted into the oropharynx and passed under direct visualization to the region of the third portion of the duodenum. From that point the scope was slowly withdrawn inspecting all surfaces carefully. There were no neoplastic inflammatory or polypoid lesions throughout the duodenum. The pylorus was widely patent. The stomach was carefully inspected. There was mild gastritis present. A biopsy of the antrum took place to rule out H. pylori. A few small gastric polyps were seen. The largest was removed using the cold biopsy forceps. Retroflexion revealed a normal hiatus. The esophagus was then carefully examined. There were no neoplastic inflammatory or polypoid lesions throughout the visualized esophagus. The patient was then taken to the recovery room in stable condition per anesthesia guidelines. Recommendations: Continue antiacid therapy. As needed Carafate. Await biopsy results.
== END 2022-01-06 12:02 | disposition home or self-care (01) ==
LOC: ORWHC2ENDO 08:31
PROVIDERS: ATTEND Surgery
DX: K29.50 Unspecified chronic gastritis without bleeding (principal); K31.7 Polyp of stomach and duodenum; K21.9 Gastro-esophageal reflux disease without esophagitis; M19.90 Unspecified osteoarthritis, unspecified site; I67.1 Cerebral aneurysm, nonruptured; K91.0 Vomiting following gastrointestinal surgery; F32.A Depression, unspecified; G43.909 Migraine, unspecified, not intractable, without status migrainosus; Z98.82 Breast implant status; Z90.49 Acquired absence of other specified parts of digestive tract; Z98.891 History of uterine scar from previous surgery; Z90.721 Acquired absence of ovaries, unilateral; Z80.3 Family history of malignant neoplasm of breast; Z88.2 Allergy status to sulfonamides; Z88.0 Allergy status to penicillin; Z88.1 Allergy status to other antibiotic agents; Z91.018 Allergy to other foods
CPT/HCPCS: 81025; 88305; 43239; J2405; J2704